=== PATIENT | male | born 1950 ===

== ENCOUNTER 2019-05-16 15:16 | Emergency (ER) | payer MEDICARE, OTHER ==
[2019-05-16 16:15] LABS: #Basophils 0.1 thou/uL (0.0-0.2); #Eosinphils 0.2 thou/uL (0.0-0.7); #Lymphocytes 1.1 thou/uL (1.20-3.40); #Monocytes 0.6 thou/uL (0.11-0.59); #Neutrophils 6.9 thou/uL (1.40-6.50); %Basophils 0.7 % (0.0-1.0); %Lymphocytes 12.7 % (21.0-51.0); %Monocytes 7.2 % (0.0-10.0); %Neutrophils 77.4 % (42.0-75.0); Mean Corpuscular HGB CONC 33.2 g/dL (32.0-36.0); Mean Corpuscular Hemoglobin 33.4 pg (27.0-31.0); Mean Platelet Volume 7.7 fL (7.4-10.4); Platelet Count 191 thou/uL (130-400); RBC Distribution Width 12.5 % (11.5-14.5); Red Blood Cell (RBC) Count 4.17 mill/uL (4.70-6.10); White Blood Cell (WBC) Count 8.9 thou/uL (4.8-10.8)
[2019-05-16 16:34] LABS: ALT (SGPT) 36 U/L (8-55); AST (SGOT) 22 U/L (5-34); Albumin 4.2 g/dL (3.4-4.8); Alkaline Phosphatase 88 U/L (40-110); Anion Gap 10 mmol/L (10-20); BUN (Urea Nitrogen) 17 mg/dL (8.4-25.7); Bilirubin, Total 0.9 mg/dL (0.2-1.2); Calc. Creatinine Clearance 0 mL/min (70-130); Calcium 9.2 mg/dL (7.8-10.44); Carbon Dioxide 27 mmol/L (23-31); Chloride 104 mmol/L (98-107); Estimated GFR-MDRD 50; Glucose 191 mg/dL (83-110); Potassium 4.4 mmol/L (3.5-5.1); Protein, Total 7.2 g/dL (5.8-8.1); Sodium 137 mmol/L (136-145)
== END 2019-05-16 18:05 | disposition home or self-care (01) ==
LOC: ERS 15:16
DX: L03.116 Cellulitis of left lower limb (principal); L60.0 Ingrowing nail; I25.10 Atherosclerotic heart disease of native coronary artery without angina pectoris; I25.2 Old myocardial infarction; I10 Essential (primary) hypertension; F41.9 Anxiety disorder, unspecified; Z79.899 Other long term (current) drug therapy; Z95.5 Presence of coronary angioplasty implant and graft; Z79.01 Long term (current) use of anticoagulants; Z79.82 Long term (current) use of aspirin
CPT/HCPCS: 36415; 80053; 85025; 99283

== ENCOUNTER 2019-05-21 20:36 | Inpatient (IN) | payer MEDICARE, OTHER ==
[2019-05-21 21:20] LABS: #Eosinphils 0.3 thou/uL (0.0-0.7); #Lymphocytes 1.6 thou/uL (1.20-3.40); #Monocytes 0.8 thou/uL (0.11-0.59); #Neutrophils 5.7 thou/uL (1.40-6.50); %Basophils 0.5 % (0.0-1.0); %Eosinophils 3.3 % (0.0-10.0); %Lymphocytes 18.8 % (21.0-51.0); %Monocytes 9.4 % (0.0-10.0); %Neutrophils 67.9 % (42.0-75.0); Hemoglobin 14.1 g/dL (14.0-18.0); Mean Corpuscular HGB CONC 33.3 g/dL (32.0-36.0); Mean Corpuscular Hemoglobin 33.8 pg (27.0-31.0); Mean Platelet Volume 7.4 fL (7.4-10.4); Platelet Count 267 thou/uL (130-400); RBC Distribution Width 12.6 % (11.5-14.5); Red Blood Cell (RBC) Count 4.16 mill/uL (4.70-6.10); White Blood Cell (WBC) Count 8.4 thou/uL (4.8-10.8)
[2019-05-21 21:37] LABS: ALT (SGPT) 45 U/L (8-55); AST (SGOT) 27 U/L (5-34); Alkaline Phosphatase 103 U/L (40-110); Anion Gap 12 mmol/L (10-20); BUN (Urea Nitrogen) 25 mg/dL (8.4-25.7); Bilirubin, Total 0.6 mg/dL (0.2-1.2); Calc. Creatinine Clearance 0 mL/min (70-130); Calcium 9.7 mg/dL (7.8-10.44); Carbon Dioxide 28 mmol/L (23-31); Chloride 102 mmol/L (98-107); Estimated GFR-MDRD 47; Globulin 3.9 g/dL (2.4-3.5); Glucose 135 mg/dL (83-110); Potassium 4.5 mmol/L (3.5-5.1); Protein, Total 7.9 g/dL (5.8-8.1); Sodium 137 mmol/L (136-145)
[2019-05-21] MEDS ORDERED: Cefepime 2 GM VIAL ONE (22:55)
[2019-05-21] MEDS ORDERED: Clindamycin/D5W 900 mg/50 ml Premix Bag ONE (23:06)
[2019-05-22] MEDS ORDERED: Ondansetron PF 4 MG/2 ML Vial IVP PRN
[2019-05-22] MEDS ORDERED: Acetaminophen 650 MG Suppository PR PRN
[2019-05-22] MEDS ORDERED: Ondansetron ODT 4 MG TAB PO PRN
[2019-05-22 00:05] VITALS: BMI 31.8
[2019-05-22 00:15] LABS: Lactic Acid 0.6 mmol/L (0.5-2.2)
[2019-05-22] MEDS ORDERED: Sodium Chloride 0.9% 1,000 ML IV SCH (00:30)
--- NOTE | 2019-05-22 02:05 | HP ---
TIME OF ASSESSMENT: 2199 CHIEF COMPLAINT: Left lower leg swelling and redness. HISTORY OF PRESENT ILLNESS: Mr. Gonzalez is a 69-year-old gentleman, who presents with worsening redness and swelling involving the left lower extremity. The patient states he has had issues with cellulitis involving the same leg in the past. He was recently seen in the emergency department on May 17, 2019 with left lower leg redness x1 day. He was discharged with recommendations to follow up with Podiatry as the initial source of infection was an ingrown toe involving the left great toe and given a prescription for clindamycin. The patient states he has continued to take it with persistent worsening in the swelling and redness involving the left lower extremity. The patient states that it has not started seeping. This has prompted him to return to the hospital. He states since being on the antibiotics, he has not noted any improvement whatsoever. He reports having chills for the last couple of days on occasion. Denies having any sweats. Occasionally feels nauseated when the pain in his leg intensifies. Otherwise, denies any nausea or vomiting. Denies any chest pain, palpitations, or shortness of breath. No dizziness or lightheadedness. All other review of systems are negative. His appetite, however, has diminished, but he continues to maintain adequate hydration and has been supplementing with shakes as well as Pedialyte. PAST MEDICAL HISTORY: 1. Coronary artery disease. 2. History of SD. 3. Hypertension. 4. Borderline diabetes. 5. Anxiety. PAST SURGICAL HISTORY: 1. Appendectomy. 2. Hernia repair. 3. Orthopedic surgery. 4. Coronary artery stents x4. FAMILY HISTORY: Noncontributory. SOCIAL HISTORY: The patient reports drinking alcohol occasionally. Denies any drug use. Reports smoking in the past, but quit 22 years ago. ALLERGIES: PENICILLIN. CURRENT MEDICATIONS: 1. Losartan. 2. Levothyroxine. 3. Amlodipine. 4. Atorvastatin. 5. Amitriptyline. 6. Eliquis. 7. Aspirin. 8. Glucosamine/chondroitin. PHYSICAL EXAMINATION: GENERAL: The patient appears well developed, well nourished, is in no acute distress. VITAL SIGNS: Temperature 98.2, pulse 67, respirations 20, O2 saturation 97% on room air, blood pressure 147/80. HEENT: Normocephalic and atraumatic. Pupils are equal, round, and reactive to light. Sclerae are without icterus. Oropharynx is clear. Dry oral mucosa. NECK: Supple. LUNGS: Clear to auscultation bilaterally without any wheezes, rales, or rhonchi. CARDIAC: Regular rate and rhythm without audible murmurs, rubs, or gallops. ABDOMEN: Soft, obese, nontender, and nondistended. Normoactive bowel sounds present. No guarding or rigidity. No renal angle tenderness. EXTREMITIES: Notable for significant swelling and erythema involving the left lower extremity. He has some blistering on the anterior lower leg with weeping. Sensation intact. Left lower leg is warm to touch. NEUROLOGIC: Alert and oriented x3. INVESTIGATIONS/LABORATORY DATA: Showed a white count of 8.4, hemoglobin 14.1, hematocrit of 42.3, platelets 267, neutrophils 67.9. Sodium 137, potassium 4.5, BUN 25, creatinine 1.48, GFR 47, glucose 135, lactic acid 0.6, calcium 9.7, total bilirubin 0.6, AST 27, ALT 45, alkaline phosphatase 103. BNP negative. Protein 7.9, albumin 4.9. IMPRESSION AND PLAN: Mr. Gonzalez is a pleasant 69-year-old gentleman, who is being admitted for management of the following. 1. Left lower extremity cellulitis. The patient initially began to have redness and swelling on May 16, 2019, seen in the ED the following day and started on clindamycin. He has continued to have worsening of the redness and swelling since then with absolutely no improvement. He has been taking the clindamycin consistently. Reports occasional chills. White blood count normal. We will add on a lactic acid. We will continue IV antibiotics. We will obtain x-rays to rule out any underlying osteomyelitis. Wound Care will be consulted. Obtain venous Doppler. 2. Hypertension. Monitor blood pressure and resume home medications once verified. 3. Dehydration. Patient clinically dehydrated with dry oral mucosa and dry skin. States he has been trying his best to maintain adequate fluid intake. We will give gentle hydration. No previous renal functions to compare to, but currently his creatinine is 1.48. 4. Coronary artery disease. Resume home medications once verified. 5. Gastrointestinal prophylaxis with famotidine. 6. Code status full. Surrogate decision maker is his , Rani Gonzalez. The case was discussed with the attending who agrees with plan of care as described above. Job ID: [id number]
[2019-05-22] MEDS: Levothyroxine 175 MCG TAB PO SCH (04:23)
[2019-05-22] MEDS ORDERED: Clindamycin/D5W 900 MG in Premix Bag 1 BAG IVPB SCH (06:00)
[2019-05-22] MEDS: Acetaminophen 325 MG TAB PO PRN ×2 (06:19→12:03)
[2019-05-22 06:33] LABS: #Eosinphils 0.2 thou/uL (0.0-0.7); #Lymphocytes 1.5 thou/uL (1.20-3.40); #Monocytes 0.7 thou/uL (0.11-0.59); #Neutrophils 5.1 thou/uL (1.40-6.50); %Basophils 0.3 % (0.0-1.0); %Eosinophils 3.1 % (0.0-10.0); %Lymphocytes 19.6 % (21.0-51.0); %Monocytes 9.6 % (0.0-10.0); %Neutrophils 67.5 % (42.0-75.0); Hemoglobin 12.9 g/dL (14.0-18.0); Mean Corpuscular HGB CONC 34.3 g/dL (32.0-36.0); Mean Corpuscular Hemoglobin 35.5 pg (27.0-31.0); Mean Platelet Volume 7.6 fL (7.4-10.4); Platelet Count 241 thou/uL (130-400); RBC Distribution Width 12.7 % (11.5-14.5); Red Blood Cell (RBC) Count 3.64 mill/uL (4.70-6.10); White Blood Cell (WBC) Count 7.5 thou/uL (4.8-10.8)
[2019-05-22 06:49] LABS: Anion Gap 13 mmol/L (10-20); BUN (Urea Nitrogen) 22 mg/dL (8.4-25.7); Calc. Creatinine Clearance 85 mL/min (70-130); Calcium 9.1 mg/dL (7.8-10.44); Carbon Dioxide 24 mmol/L (23-31); Chloride 104 mmol/L (98-107); Estimated GFR-MDRD 54; Glucose 171 mg/dL (83-110); Potassium 4.6 mmol/L (3.5-5.1); Sodium 136 mmol/L (136-145)
[2019-05-22] MEDS ORDERED: FLU VACC TS2019-20(65YR UP)/PF 180 MCG/0.5 ML SYRINGE IM ONE (09:00)
[2019-05-22] MEDS ORDERED: Amlodipine 5 MG TAB PO SCH (09:00)
[2019-05-22] MEDS ORDERED: Amitriptyline HCl 25 MG TAB PO SCH (09:00)
[2019-05-22] MEDS ORDERED: Levothyroxine 175 MCG TAB PO SCH (09:00)
[2019-05-22] MEDS ORDERED: Cefepime 2 GM in Sodium Chloride 0.9% 100 ML IVPB SCH (09:00)
[2019-05-22] MEDS ORDERED: Aspirin Chewable 81 MG TAB PO SCH (09:00)
[2019-05-22] MEDS: Atorvastatin Calcium 40 MG TAB PO SCH (09:14)
[2019-05-22] MEDS: Losartan 25 MG TAB PO SCH (09:14)
[2019-05-22] MEDS: Apixaban 5 MG TAB PO SCH ×2 (09:15→20:19)
[2019-05-22] MEDS: Famotidine/PF 20 mg/2ml Vial SLOW IVP SCH ×2 (09:16→20:19)
--- NOTE | 2019-05-22 09:30 | RAD ---
LEFT TIBIA AND FIBULA TWO VIEWS: HISTORY: Cellulitis. COMPARISON: None. FINDINGS: Mild lateral compartment joint space narrowing of the knee. Circumferential swelling of the superfici al soft tissues of the tibia and fibula. There are mild vascular calcifications. Incompletely evaluat ed plantar calcaneal spur, moderate in size. No acute fracture or malalignment. No erosions or periostitis. There are medial and lateral tibial sp ine osteophytes. IMPRESSION: Circumferential swelling can be seen with cellulitis. No definite evidence for osteomyelitis. POS: TPC
--- NOTE | 2019-05-22 09:34 | RAD ---
LEFT FOOT THREE VIEWS: HISTORY: Cellulitis. COMPARISON: None. FINDINGS: There is a small erosion of the peroneus brevis insertion 5th metatarsal tuberosity. Lisfranc interva l is maintained. Type III navicular ossicle. No acute fracture or malalignment. Extensive soft tissue swelling around the ankle. IMPRESSION: 1. Extensive soft tissue swelling without fracture or malalignment. 2. Small erosion of the 5th metatarsal proximal tuberosity, likely sequela of underlying tendinosis o f peroneus brevis and less likely osteomyelitis. 3. Likely an old fracture of the 5th proximal phalanx diaphysis. Recommend correlation with focal ten derness. POS: TPC
--- NOTE | 2019-05-22 12:22 | PDOC.HOSPP ---
- Subjective Encounter Date: 05/22/19 Encounter Time: 07:45 Subjective: no leg pain says swelling in left leg has come down a bit - Objective Vital Signs & Weight: Vital Signs (12 hours) Temp Pulse Resp BP BP BP Pulse Ox 05/22/19 11:31 98.2 F 64 20 154/87 H 96 05/22/19 09:14 69 135/82 05/22/19 09:10 96 05/22/19 07:21 98 F 69 18 135/82 96 05/22/19 05:32 98.0 F 65 20 126/69 96 05/22/19 00:29 97 Weight Weight 254 lb 9.6 oz Result Diagrams: 05/22/19 05:45 05/22/19 05:45 Hospitalist ROS - Medication Medications: Active Medications Generic Name Dose Route Start Last Admin Trade Name Freq PRN Reason Stop Dose Admin Acetaminophen 650 mg 05/22/19 00:00 05/22/19 12:03 Tylenol PO 650 mg Q4H PRN Administration Headache/Fever/Mild Pain (1-3) Apixaban 5 mg 05/22/19 09:00 05/22/19 09:15 Eliquis PO 5 mg BID CLAUDIO Administration Atorvastatin Calcium 40 mg 05/22/19 09:00 05/22/19 09:14 Lipitor PO 40 mg DAILY CLAUDIO Administration Famotidine 20 mg 05/22/19 09:00 05/22/19 09:16 Pepcid SLOW IVP 20 mg Q12HR CLAUDIO Administration Cefepime HCl 2 gm/ Sodium 100 mls @ 200 mls/hr 05/22/19 09:00 05/22/19 09:16 Chloride IVPB 100 mls Q12HR CLAUDIO Administration Clindamycin Phosphate/Dextrose 50 mls @ 100 mls/hr 05/22/19 06:00 05/22/19 04 :22 900 mg/ Device IVPB 50 mls Q8HR CLAUDIO Administration Levothyroxine Sodium 175 mcg 05/22/19 06:00 05/22/19 04:23 Synthroid PO 175 mcg 0600 CLAUDIO Administration Losartan Potassium 100 mg 05/22/19 09:00 05/22/19 09:14 Cozaar PO 100 mg DAILY CLAUDIO Administration - Exam General Appearance: NAD, awake alert Eye: PERRL, anicteric sclera ENT: no oropharyngeal lesions, moist mucosa Neck: supple, no JVD Heart: RRR, no murmur Respiratory: no wheezes, no rales Gastrointestinal: soft, non-tender, non-distended, normal bowel sounds Extremities: 1+ LE edema Extremities - other findings: left leg blistering and erythema++ Neurological: cranial nerve grossly intact, no focal deficits Psychiatric: normal affect, A&O x 3 Hosp A/P (1) Left leg cellulitis Code(s): L03.116 - CELLULITIS OF LEFT LOWER LIMB Status: Acute (2) HTN (hypertension) Code(s): I10 - ESSENTIAL (PRIMARY) HYPERTENSION Status: Chronic Qualifiers: Hypertension type: essential hypertension Qualified Code(s): I10 - Essential (primary) hypertension (3) Hypothyroidism Code(s): E03.9 - HYPOTHYROIDISM, UNSPECIFIED Status: Chronic Qualifiers: Hypothyroidism type: unspecified Qualified Code(s): E03.9 - Hypothyroidism , unspecified (4) DM type 2 (diabetes mellitus, type 2) Status: Chronic Qualifiers: 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 transplanted heart: [place] heart Associated angina: without angina Qualified Code(s): I25.10 - Atherosclerotic heart disease of [place] coronary artery without angina pectoris (6) Anxiety disorder Code(s): F41.9 - ANXIETY DISORDER, UNSPECIFIED Status: Chronic Qualifiers: Anxiety disorder type: generalized anxiety disorder Qualified Code(s): F41.1 - Generalized anxiety disorder (7) Dyslipidemia Code(s): E78.5 - HYPERLIPIDEMIA, UNSPECIFIED Status: Chronic - Plan is on clindamycin, cefepime and vancomycin has ingrown toe nail with infection podiatry and ID consultation has extensive cellulitis with blistering of leg continue home meds norvasc, cozaar, synthroid, elavil, eliquis, lipitor hemostable
[2019-05-22] MEDS: Amlodipine 5 MG TAB PO SCH (15:22)
--- NOTE | 2019-05-22 15:28 | CON ---
DATE OF CONSULTATION: 05/22/2019 REASON FOR CONSULTATION: Cellulitis , left leg. HISTORY OF PRESENT ILLNESS: A 69-year-old, history of coronary artery disease, hypertension, and diabetes mellitus, type 2 as well as previous episodes of cellulitis, left lower extremity in [place]. The patient moved here about 2 years ago in part of his nursing home package, and he noticed development of redness in the left lower extremity and was seen reportedly by student union consultant, but he did have ER visit 3 days before admission. He was given oral antimicrobial therapy with clindamycin, and due to persistence and exacerbation of inflammatory process, he came back and is admitted. Now, he is feeling better. No headaches, visual symptoms, sore throat, odynophagia, or dysphagia. No cough, sputum production, or chest pain. No abdominal pain or diarrhea. No genitourinary symptoms. No joint symptoms. No neurological symptoms. PAST MEDICAL HISTORY: Type 2 diabetes, coronary artery disease, [place], hypertension, prior episodes of cellulitis in the lower extremities, and anxiety. PAST SURGICAL HISTORY: Appendectomy, hernia repair, coronary artery stent, and had knee and wrist surgeries, probably arthroscopy of the knee. FAMILY HISTORY: Noncontributory. SOCIAL HISTORY: Quit smoking many years ago. Drinks occasionally. 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 ALLERGIES: PENICILLIN WITH HIVES WHEN HE WAS AT THE AGE OF 4. CURRENT MEDICATIONS: 1. Elavil. 2. Norvasc. 3. Eliquis. 4. Aspirin. 5. Lipitor. 6. Cefepime. 7. Clindamycin. 8. Pepcid. 9. Synthroid. 10. Vancomycin. PHYSICAL EXAMINATION: VITAL SIGNS: T-max 98.2, blood pressure 150/80, pulse 64, respirations 20, O2 saturation 96%. SKIN: With a circumferential area of erythema extending from a very sharply demarcated area right above the foot to the two-thirds up the left leg. In the lower segment anterior aspect, there is a central area of what appears to be early blistering. Most of the erythema is localized in the anterior segment. The posterior is somewhat spared. The patient has a peripheral IV access and is voiding in the toilet. LYMPHATICS: No lymphadenopathy. HEENT: Ocular movements are conjugate. Sclerae are white. Pupils are equal. Oral cavity with no [place] teeth remaining. Oral mucosa is normal. NECK: Supple. LUNGS: Symmetric, clear breath sounds. HEART: S1 and S2. Regular rate. No murmurs. ABDOMEN: Soft. Not distended or tender. No ascites. No bladder distention. MUSCULOSKELETAL: No joint inflammatory activity. EXTREMITIES: Pulses 1+ in dorsalis pedis. NEUROLOGIC: Nonfocal including cognitive function. LABORATORY DATA: WBC 8.4 and 7.5, hemoglobin 12.9, MCV 103, and platelets 241. Creatinine was 1.48, now 1.3. Liver profile, normal. Albumin 4.0. He has tibia-fibula x-ray, which was not remarkable. Blood cultures are pending. ASSESSMENT: 1. Coronary artery disease. 2. Prior cellulitis with evidence of venous insufficiency with stasis dermatitis in the past. 3. New onset of inflammatory process consistent with cellulitis/erysipelas. 4. Left leg with central blistering. DISCUSSION: The most likely scenario is beta-hemolytic streptococcal cellulitis associated with venous insufficiency. The history of allergy to penicillin is remote, and typically, those patients tolerate rechallenge with penicillin. We will switch him to Rocephin 1 g daily and then follow up once improved. Switch to Keflex for suppressive therapy. Pen-Vee K can be given here in the hospital as a challenge to allow prescription after discharge planning. Job ID: [id number]
[2019-05-22] MEDS ORDERED: Ibuprofen 200 MG TAB PO PRN (15:56)
[2019-05-22] MEDS: cefTRIAXone\\ROCEPHIN 1 GM in Sodium Chloride 0.9% 100 ML IVPB SCH (20:19)
[2019-05-22] MEDS: Amitriptyline HCl 25 MG TAB PO SCH (20:19)
[2019-05-22] MEDS: Aspirin Chewable 81 MG TAB PO SCH (20:19)
[2019-05-22] MEDS ORDERED: Vancomycin HCl 1.75 GM in Sodium Chloride 0.9% 500 ML IVPB SCH (23:59)
[2019-05-23] MEDS: Levothyroxine 175 MCG TAB PO SCH (03:26)
[2019-05-23] MEDS: Acetaminophen 325 MG TAB PO PRN (03:26)
[2019-05-23] MEDS: HYDROcodone/Acetaminophen 7.5/325 mg Tablet PO PRN ×3 (05:15→21:26)
[2019-05-23] MEDS: Losartan 25 MG TAB PO SCH (09:21)
[2019-05-23] MEDS: Famotidine/PF 20 mg/2ml Vial SLOW IVP SCH ×2 (09:21→20:29)
[2019-05-23] MEDS: Atorvastatin Calcium 40 MG TAB PO SCH (09:22)
[2019-05-23] MEDS: Apixaban 5 MG TAB PO SCH ×2 (09:22→20:29)
[2019-05-23] MEDS ORDERED: traMADol HCl 50 MG TAB PO PRN (09:51)
[2019-05-23] MEDS: Mupirocin 2% Ointment 22 GM Tube TOP SCH (10:57)
--- NOTE | 2019-05-23 12:39 | PDOC.HOSPP ---
- Subjective Encounter Date: 05/23/19 Encounter Time: 09:30 Subjective: Pain is better in leg, ambulating in room. Gets nauseated with morphine. - Objective Vital Signs & Weight: Vital Signs (12 hours) Temp Pulse Resp BP Pulse Ox 05/23/19 09:15 95 05/23/19 07:30 98.0 F 67 18 113/71 95 Weight Admit Weight 254 lb 9.6 oz Weight 254 lb 9.6 oz I&O: 05/22/19 05/23/19 05/24/19 06:59 06:59 06:59 Intake Total 1600 Balance 1600 Result Diagrams: 05/22/19 05:45 05/22/19 05:45 Hospitalist ROS - Medication Medications: Active Medications Generic Name Dose Route Start Last Admin Trade Name Freq PRN Reason Stop Dose Admin Acetaminophen 650 mg 05/22/19 00:00 05/23/19 03:26 Tylenol PO 650 mg Q4H PRN Administration Headache/Fever/Mild Pain (1-3) Hydrocodone Bitart/Acetaminophen 1 tab 05/22/19 18:21 05/23/19 09:20 [place] 7.5/325 PO 1 tab Q4H PRN Administration Pain Amitriptyline HCl 50 mg 05/22/19 21:00 05/22/19 20:19 Elavil PO 50 mg HS CLAUDIO Administration Amlodipine Besylate 5 mg 05/22/19 15:00 05/22/19 15:22 Norvasc PO 5 mg 1500 CLAUDIO Administration Apixaban 5 mg 05/22/19 09:00 05/23/19 09:22 Eliquis PO 5 mg BID CLAUDIO Administration Aspirin 81 mg 05/22/19 21:00 05/22/19 20:19 Aspirin Chewable PO 81 mg HS CLAUDIO Administration Atorvastatin Calcium 40 mg 05/22/19 09:00 05/23/19 09:22 Lipitor PO 40 mg DAILY CLAUDIO Administration Famotidine 20 mg 05/22/19 09:00 05/23/19 09:21 Pepcid SLOW IVP 20 mg Q12HR CLAUDIO Administration Ceftriaxone Sodium 1 gm/ 100 mls @ 200 mls/hr 05/22/19 21:00 05/22/19 20:19 Sodium Chloride IVPB 100 mls Q24HR CLAUDIO Administration Ibuprofen 400 mg 05/22/19 15:56 05/22/19 16:23 Motrin PO 400 mg Q8H PRN Administration Moderate Pain (4-6) Levothyroxine Sodium 175 mcg 05/22/19 06:00 05/23/19 03:26 Synthroid PO 175 mcg 0600 CLAUDIO Administration Losartan Potassium 100 mg 05/22/19 09:00 05/23/19 09:21 Cozaar PO 100 mg DAILY CLAUDIO Administration Mupirocin 0 gm 05/23/19 09:00 05/23/19 10:57 Bactroban 2% Ointment TOP 1 applic DAILY CLAUDIO Administration - Exam General Appearance: NAD, awake alert Eye: PERRL, anicteric sclera ENT: no oropharyngeal lesions, moist mucosa Neck: supple, no JVD Heart: RRR, no murmur Respiratory: no wheezes, no rales Gastrointestinal: soft, non-distended, normal bowel sounds Extremities - other findings: L leg erythema and edema is receding/ in dressing Neurological: cranial nerve grossly intact, no focal deficits Psychiatric: normal affect, A&O x 3 Hosp A/P (1) Left leg cellulitis Code(s): L03.116 - CELLULITIS OF LEFT LOWER LIMB Status: Acute (2) HTN (hypertension) Code(s): I10 - ESSENTIAL (PRIMARY) HYPERTENSION Status: Chronic Qualifiers: Hypertension type: essential hypertension Qualified Code(s): I10 - Essential (primary) hypertension (3) Hypothyroidism Code(s): E03.9 - HYPOTHYROIDISM, UNSPECIFIED Status: Chronic Qualifiers: Hypothyroidism type: unspecified Qualified Code(s): E03.9 - Hypothyroidism , unspecified (4) DM type 2 (diabetes mellitus, type 2) Status: Chronic Qualifiers: Diabetes mellitus skilled nursing insulin use: without skilled nursing use (5) CAD (coronary artery disease) Code(s): I25.10 - ATHSCL HEART DISEASE OF [place] CORONARY ARTERY W/O ANG PCTRS Status: Chronic Qualifiers: Coronary Disease-Associated Artery/Lesion type: [place] artery [place] vs. transplanted heart: [place] heart Associated angina: without angina Qualified Code(s): I25.10 - Atherosclerotic heart disease of [place] coronary artery without angina pectoris (6) Anxiety disorder Code(s): F41.9 - ANXIETY DISORDER, UNSPECIFIED Status: Chronic Qualifiers: Anxiety disorder type: generalized anxiety disorder Qualified Code(s): F41.1 - Generalized anxiety disorder (7) Dyslipidemia Code(s): E78.5 - HYPERLIPIDEMIA, UNSPECIFIED Status: Chronic - Plan is on ceftriaxone has ingrown toe nail with infection, s/p removal of nail by Dorothy Carrasco has extensive cellulitis with blistering of leg continue home meds norvasc, cozaar, synthroid, elavil, eliquis, lipitor hemostable
--- NOTE | 2019-05-23 13:25 | PRG ---
DATE OF SERVICE: 05/23/2019 SUBJECTIVE: Dr. De La Cruz removed an ingrown toenail from the left foot. The leg itself is not as swollen and still moderately painful. No respiratory or abdominal symptoms. OBJECTIVE: VITAL SIGNS: Normal. He has been afebrile. EXTREMITIES: The left leg cellulitis is improving with less erythema. There is a central anterior area of blistering with sort of yellow serous fluid inside. LABORATORY DATA: White cell count 7.5, hemoglobin 12.9, platelets 241. Creatinine 1.3, which has improved. No microbiology information. ASSESSMENT AND DISCUSSION: Coronary artery disease, cellulitis in the past with now recurrence likely beta-hemolytic Streptococcal cellulitis, blistering associated with it. Continue Rocephin. Maybe tomorrow or Monday go home on Keflex and then Pen-Vee K suppressive therapy for 1 year. Job ID: [id number]
[2019-05-23] MEDS: Amlodipine 5 MG TAB PO SCH (15:01)
[2019-05-23] MEDS: cefTRIAXone\\ROCEPHIN 1 GM in Sodium Chloride 0.9% 100 ML IVPB SCH (20:29)
[2019-05-23] MEDS: Amitriptyline HCl 25 MG TAB PO SCH (20:29)
[2019-05-23] MEDS: Aspirin Chewable 81 MG TAB PO SCH (20:29)
[2019-05-23] MEDS: Penicillin V Potassium 250 MG TAB PO SCH (20:29)
[2019-05-24] MEDS: Levothyroxine 175 MCG TAB PO SCH (06:02)
[2019-05-24] MEDS: Apixaban 5 MG TAB PO SCH ×2 (08:42→20:49)
[2019-05-24] MEDS: Losartan 25 MG TAB PO SCH (08:42)
[2019-05-24] MEDS: Penicillin V Potassium 250 MG TAB PO SCH ×2 (08:42→20:49)
[2019-05-24] MEDS: Atorvastatin Calcium 40 MG TAB PO SCH (08:42)
[2019-05-24] MEDS: Acetaminophen 325 MG TAB PO PRN ×2 (08:43→17:03)
[2019-05-24] MEDS: Famotidine/PF 20 mg/2ml Vial SLOW IVP SCH (08:44)
[2019-05-24] MEDS: Mupirocin 2% Ointment 22 GM Tube TOP SCH (08:44)
--- NOTE | 2019-05-24 15:11 | PDOC.HOSPP ---
- Subjective Encounter Date: 05/24/19 Encounter Time: 10:45 Subjective: feels better, no reaction to oral pen vk leg pain is better, is ambulating in room - Objective Vital Signs & Weight: Vital Signs (12 hours) Temp Pulse Resp BP Pulse Ox 05/24/19 11:22 97.9 F 74 20 113/72 98 05/24/19 07:48 98.3 F 65 18 137/82 94 L Weight Admit Weight 254 lb 9.6 oz Weight 254 lb 9.6 oz I&O: 05/23/19 05/24/19 05/25/19 06:59 06:59 06:59 Intake Total 1600 Balance 1600 Result Diagrams: 05/22/19 05:45 05/22/19 05:45 Hospitalist ROS - Medication Medications: Active Medications Generic Name Dose Route Start Last Admin Trade Name Freq PRN Reason Stop Dose Admin Acetaminophen 650 mg 05/22/19 00:00 05/24/19 08:43 Tylenol PO 650 mg Q4H PRN Administration Headache/Fever/Mild Pain (1-3) Hydrocodone Bitart/Acetaminophen 1 tab 05/22/19 18:21 05/23/19 21:26 [place] 7.5/325 PO 1 tab Q4H PRN Administration Pain Amitriptyline HCl 50 mg 05/22/19 21:00 05/23/19 20:29 Elavil PO 50 mg HS CLAUDIO Administration Amlodipine Besylate 5 mg 05/22/19 15:00 05/23/19 15:01 Norvasc PO 5 mg 1500 CLAUDIO Administration Apixaban 5 mg 05/22/19 09:00 05/24/19 08:42 Eliquis PO 5 mg BID CLAUDIO Administration Aspirin 81 mg 05/22/19 21:00 05/23/19 20:29 Aspirin Chewable PO 81 mg HS CLAUDIO Administration Atorvastatin Calcium 40 mg 05/22/19 09:00 05/24/19 08:42 Lipitor PO 40 mg DAILY CLAUDIO Administration Famotidine 20 mg 05/22/19 09:00 05/24/19 08:44 Pepcid SLOW IVP 20 mg Q12HR CLAUDIO Administration Ibuprofen 400 mg 05/22/19 15:56 05/22/19 16:23 Motrin PO 400 mg Q8H PRN Administration Moderate Pain (4-6) Levothyroxine Sodium 175 mcg 05/22/19 06:00 05/24/19 06:02 Synthroid PO 175 mcg 0600 CLAUDIO Administration Losartan Potassium 100 mg 05/22/19 09:00 05/24/19 08:42 Cozaar PO 100 mg DAILY CLAUDIO Administration Mupirocin 0 gm 05/23/19 09:00 05/24/19 08:44 Bactroban 2% Ointment TOP 1 applic DAILY CLAUDIO Administration Penicillin V Potassium 250 mg 05/23/19 21:00 05/24/19 08:42 Penicillin V Potassium PO 250 mg BID CLAUDIO Administration - Exam General Appearance: NAD, awake alert Eye: PERRL, anicteric sclera ENT: no oropharyngeal lesions, moist mucosa Neck: supple, no JVD Heart: RRR, no murmur Respiratory: no wheezes, no rales Gastrointestinal: soft, non-tender, non-distended, normal bowel sounds Extremities - other findings: left leg erythema and edema is receding Neurological: cranial nerve grossly intact, no focal deficits Psychiatric: normal affect, A&O x 3 Hosp A/P (1) Left leg cellulitis Code(s): L03.116 - CELLULITIS OF LEFT LOWER LIMB Status: Acute (2) HTN (hypertension) Code(s): I10 - ESSENTIAL (PRIMARY) HYPERTENSION Status: Chronic Qualifiers: Hypertension type: essential hypertension Qualified Code(s): I10 - Essential (primary) hypertension (3) Hypothyroidism Code(s): E03.9 - HYPOTHYROIDISM, UNSPECIFIED Status: Chronic Qualifiers: Hypothyroidism type: unspecified Qualified Code(s): E03.9 - Hypothyroidism , unspecified (4) DM type 2 (diabetes mellitus, type 2) Status: Chronic Qualifiers: Diabetes mellitus correction insulin use: without correction use (5) CAD (coronary artery disease) Code(s): I25.10 - ATHSCL HEART DISEASE OF [place] CORONARY ARTERY W/O ANG PCTRS Status: Chronic Qualifiers: Coronary Disease-Associated Artery/Lesion type: [place] artery [place] vs. transplanted heart: [place] heart Associated angina: without angina Qualified Code(s): I25.10 - Atherosclerotic heart disease of [place] coronary artery without angina pectoris (6) Anxiety disorder Code(s): F41.9 - ANXIETY DISORDER, UNSPECIFIED Status: Chronic Qualifiers: Anxiety disorder type: generalized anxiety disorder Qualified Code(s): F41.1 - Generalized anxiety disorder (7) Dyslipidemia Code(s): E78.5 - HYPERLIPIDEMIA, UNSPECIFIED Status: Chronic - Plan is on ceftriaxone IM, lost his IV access today, difficult to get another one per staff. has ingrown toe nail with infection, s/p removal of nail by Dorothy Carrasco has extensive cellulitis with blistering of leg continue home meds norvasc, cozaar, synthroid, elavil, eliquis, lipitor hemostable DC plan in am on KEflex x 10 days then Pen VK 500mg bid x 1 year per .
[2019-05-24] MEDS: Amlodipine 5 MG TAB PO SCH (15:44)
[2019-05-24] MEDS: Amitriptyline HCl 25 MG TAB PO SCH (20:49)
[2019-05-24] MEDS: Famotidine 20 MG TAB PO SCH (20:49)
[2019-05-24] MEDS: Aspirin Chewable 81 MG TAB PO SCH (20:49)
[2019-05-24] MEDS: HYDROcodone/Acetaminophen 7.5/325 mg Tablet PO PRN (20:50)
[2019-05-25] MEDS: Levothyroxine 175 MCG TAB PO SCH (06:00)
[2019-05-25] MEDS: HYDROcodone/Acetaminophen 7.5/325 mg Tablet PO PRN ×2 (06:02→12:56)
[2019-05-25 06:07] LABS: #Basophils 0.1 thou/uL (0.0-0.2); #Eosinphils 0.4 thou/uL (0.0-0.7); #Lymphocytes 1.7 thou/uL (1.20-3.40); #Monocytes 0.6 thou/uL (0.11-0.59); #Neutrophils 4.6 thou/uL (1.40-6.50); %Basophils 0.7 % (0.0-1.0); %Eosinophils 4.9 % (0.0-10.0); %Lymphocytes 22.5 % (21.0-51.0); %Monocytes 8.8 % (0.0-10.0); %Neutrophils 63.1 % (42.0-75.0); Mean Corpuscular HGB CONC 33.8 g/dL (32.0-36.0); Mean Corpuscular Hemoglobin 34.5 pg (27.0-31.0); Mean Platelet Volume 6.8 fL (7.4-10.4); Platelet Count 290 thou/uL (130-400); RBC Distribution Width 12.6 % (11.5-14.5); Red Blood Cell (RBC) Count 3.77 mill/uL (4.70-6.10); White Blood Cell (WBC) Count 7.3 thou/uL (4.8-10.8)
[2019-05-25 06:25] LABS: ALT (SGPT) 39 U/L (8-55); AST (SGOT) 24 U/L (5-34); Albumin 3.6 g/dL (3.4-4.8); Alkaline Phosphatase 88 U/L (40-110); Anion Gap 13 mmol/L (10-20); BUN (Urea Nitrogen) 23 mg/dL (8.4-25.7); Bilirubin, Total 0.6 mg/dL (0.2-1.2); Calc. Creatinine Clearance 76 mL/min (70-130); Calcium 9.2 mg/dL (7.8-10.44); Carbon Dioxide 26 mmol/L (23-31); Chloride 102 mmol/L (98-107); Estimated GFR-MDRD 48; Globulin 3.6 g/dL (2.4-3.5); Glucose 121 mg/dL (83-110); Potassium 4.9 mmol/L (3.5-5.1); Protein, Total 7.2 g/dL (5.8-8.1); Sodium 136 mmol/L (136-145)
[2019-05-25] MEDS: Atorvastatin Calcium 40 MG TAB PO SCH (07:57)
[2019-05-25] MEDS: Famotidine 20 MG TAB PO SCH (07:57)
[2019-05-25] MEDS: Losartan 25 MG TAB PO SCH (07:57)
[2019-05-25] MEDS: Penicillin V Potassium 250 MG TAB PO SCH (07:57)
[2019-05-25] MEDS: Apixaban 5 MG TAB PO SCH (07:58)
[2019-05-25] MEDS: Mupirocin 2% Ointment 22 GM Tube TOP SCH (07:58)
[2019-05-25] MEDS ORDERED: cefTRIAXone\\ROCEPHIN 1 GM VIAL IM SCH (09:00)
[2019-05-25] MEDS: Amlodipine 5 MG TAB PO SCH (14:55)
[2019-05-25 15:54] VITALS: BP 123/73; TEMP 98
--- NOTE | 2019-05-27 08:06 | PQF ---
FELIPA SALINAS VINAYA KUMAR MD [id number] CLINICAL DOCUMENTATION CLARIFICATION FORM: POST DISCHARGE Addendum to original discharge summary date: ____ Late entry note date: __ DATE:05/27/2019 ATTN: LAURA MARTINEZ MD Please exercise your independent, professional judgment in responding to the clarification form. Clinical indicators are provided on the bottom of this form for your review Please check appropriate box(s): [ ] Left leg cellulitis is due to Diabetes [ ] Left leg cellulitis is not due to Diabetes [ ] Other diagnosis [ x ] Unable to determine For continuity of documentation, please document condition throughout progress notes and discharge summary. Thank You. CLINICAL INDICATORS - SIGNS / SYMPTOMS / LABS Left lower leg swelling and redness-Documented in H&P on 05/21 by Evelyne Loja PA-C PMH-Borderline diabetes-Documented in H&P on 05/21 by Evelyne Loja PA-C [id number] in H&P on 05/21 by Evelyne Loja PA-C Left lower extremity cellulitis--Documented in H&P on 05/21 by Evelyne Loja PA-C DM type 2 chronic-Documented in Hospitalist PN 05/22 by Laura Martinez RISKS: Left lower extremity cellulitis--Documented in H&P on 05/21 by Evelyne Loja PA-C DM type 2 chronic-Documented in Hospitalist PN 05/22 by Laura Martinez TREATMENT: Is on Clindamycin, Cefepime and vancomycin--Documented in Hospitalist PN 05/22 by Laura Martinez 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 All Rights Reserved [email or web address] [email or web address] [phone] [email or web address]
--- NOTE | 2019-05-27 11:49 | DIS ---
DATE OF ADMISSION: 05/21/2019 DATE OF DISCHARGE: 05/25/2019 DISCHARGE DIAGNOSES: 1. Left leg cellulitis. 2. Hypertension. 3. Hypothyroidism. 4. Diabetes, type 2. 5. Coronary artery disease. 6. Anxiety disorder. 7. Dyslipidemia. HOSPITAL COURSE: Mr. Gonzalez is a 69-year-old gentleman, who was admitted on 05/21/2019, on account of left leg swelling and redness. The patient is stated to have had cellulitis in the same leg and the pus. He had recently been in the emergency room on 05/17, with complaints of right leg swelling. He was given antibiotics and recommendation to follow up with Podiatry. The patient, however, stated that his swelling got worse, so he presented to emergency room. Upon presentation to the emergency room, he was diagnosed with left lower extremity swelling as well as sepsis, was started on appropriate antibiotics and Infectious Disease was consulted. They saw patient and felt that patient will require aggressive therapy. They felt that patient's symptoms were consistent with erysipelas and recommended for long-term antibiotics as well as suppressive therapy. The patient was started on antibiotics in the hospital and improved. At the time of discharge, it was documented that he will be discharged home on Keflex for 10 days and then penicillin VK 500 mg b.i.d. for 1 year. At the time of discharge, the patient was stable. PHYSICAL EXAMINATION: VITAL SIGNS: Temperature 98, blood pressure 123/73, pulse is 70, respirations 18, and oxygen saturation 95% on room air. GENERAL: Alert gentleman, in no acute distress. HEENT: . Pupils are equal and reactive to light and accommodation. Extraocular muscles are intact. NECK: Supple. No JVD. No thyromegaly. No bruits. CARDIOVASCULAR: First and second heart sounds were heard. No murmurs, rubs, or gallops. RESPIRATORY: Good air entry bilaterally. No crackles. No rales. No wheezes. ABDOMEN: Bowel sounds are present. Nondistended. Nontender. EXTREMITIES: No cyanosis. No clubbing. No edema. MEDICATIONS: Kindly see medication reconciliation list. FOLLOWUP: The patient is to follow up with Infectious Disease in the next 1 month. ACTIVITIES: As tolerated. DIET: Cardiac diet. Plan was discussed with patient. He agrees with the plan and expressed understanding. TIME SPENT: Time spent on discharge was 30 minutes. Job ID: [id number]
--- NOTE | 2019-06-03 08:42 | PQF ---
FELIPA SALINAS SAVAN, MD [id number] CLINICAL DOCUMENTATION CLARIFICATION FORM: POST DISCHARGE Addendum to original discharge summary date: ____ Late entry note date: __ DATE:06/03/2019 ATTN:TAMMY CHOE MD Please exercise your independent, professional judgment in responding to the clarification form. Clinical indicators are provided on the bottom of this form for your review Please check appropriate box(s) to clarify if the following diagnosis has been ruled in or ruled out: Sepsis [ ] Ruled in diagnosis [ ] Continue to treat [ ] Resolved [ ] Ruled out diagnosis [ ] Cannot rule out diagnosis [ ] Other diagnosis [ ] Unable to determine In addition, please specify: Present on Admission (POA): [ ] Yes [ ] No [ ] Unable to determine For continuity of documentation, please document condition throughout progress notes and discharge summary. Thank You. CLINICAL INDICATORS - SIGNS / SYMPTOMS / LABS Left leg cellulitis-Documented in Discharge summary on 05/25 by Roger Ochoa MD Upon presentation to the emergency room he was diagnosed with left lower extremity swelling as well as sepsis -Documented in Discharge summary on 05/25 by Roger Ochoa MD They felt that patient's symptoms were consistent with erysipelas and recommended for senior living antibiotics as well as suppressive therapy-Documented in Discharge summary on 05/25 by Roger Ochoa MD RISK FACTORS Left leg cellulitis-Documented in Discharge summary on 05/25 by Roger Ochoa MD TREATMENTS Started on appropriate antibiotics and infectious disease was consulted.They saw patient and felt that patient will require aggressive therapy-Documented in Discharge summary on 05/25 by Roger Ochoa MD [employer] (This form is maintained as a part of the permanent medical record) 2014 [employer] All Rights Reserved [email or web address]
== END 2019-05-25 19:51 | disposition home or self-care (01) | DRG 872 ==
LOC: ERS 20:36 → T4-A 23:40
PROVIDERS: ADMIT Hospitalist; ATTEND Hospitalist
DX: A41.9 Sepsis, unspecified organism (principal); L03.116 Cellulitis of left lower limb; I25.10 Atherosclerotic heart disease of native coronary artery without angina pectoris; F41.9 Anxiety disorder, unspecified; E86.0 Dehydration; I10 Essential (primary) hypertension; E03.9 Hypothyroidism, unspecified; E11.9 Type 2 diabetes mellitus without complications; E78.5 Hyperlipidemia, unspecified; L60.0 Ingrowing nail; B95.4 Other streptococcus as the cause of diseases classified elsewhere; I87.2 Venous insufficiency (chronic) (peripheral); Z88.0 Allergy status to penicillin; Z87.891 Personal history of nicotine dependence; Z95.5 Presence of coronary angioplasty implant and graft; I25.2 Old myocardial infarction; Z98.890 Other specified postprocedural states; Z85.038 Personal history of other malignant neoplasm of large intestine; Z91.048 Other nonmedicinal substance allergy status
CPT/HCPCS: 36415; 80048; 80053; 83605; 83880; 85025; 90471; 90662; 96365; 96375; G0008; J0692; J0696; J3370; J3490; J7050; S0028

== ENCOUNTER 2019-06-14 11:57 | Observation (INO) | payer MEDICARE, OTHER ==
[2019-06-14 12:56] LABS: #Basophils 0.1 thou/uL (0.0-0.2); #Eosinphils 0.3 thou/uL (0.0-0.7); #Lymphocytes 1.7 thou/uL (1.20-3.40); #Monocytes 0.4 thou/uL (0.11-0.59); #Neutrophils 3.7 thou/uL (1.40-6.50); %Eosinophils 5.3 % (0.0-10.0); %Lymphocytes 26.9 % (21.0-51.0); %Monocytes 6.9 % (0.0-10.0); %Neutrophils 59.9 % (42.0-75.0); Hemoglobin 14.5 g/dL (14.0-18.0); Mean Corpuscular HGB CONC 33.5 g/dL (32.0-36.0); Mean Corpuscular Hemoglobin 34.5 pg (27.0-31.0); Mean Platelet Volume 7.8 fL (7.4-10.4); Platelet Count 230 thou/uL (130-400); RBC Distribution Width 12.9 % (11.5-14.5); Red Blood Cell (RBC) Count 4.22 mill/uL (4.70-6.10); White Blood Cell (WBC) Count 6.1 thou/uL (4.8-10.8)
[2019-06-14 13:18] LABS: ALT (SGPT) 40 U/L (8-55); AST (SGOT) 25 U/L (5-34); Albumin 4.2 g/dL (3.4-4.8); Alkaline Phosphatase 96 U/L (40-110); Anion Gap 11 mmol/L (10-20); BUN (Urea Nitrogen) 13 mg/dL (8.4-25.7); Bilirubin, Total 0.6 mg/dL (0.2-1.2); Calc. Creatinine Clearance 0 mL/min (70-130); Calcium 9.5 mg/dL (7.8-10.44); Carbon Dioxide 28 mmol/L (23-31); Chloride 103 mmol/L (98-107); Estimated GFR-MDRD 53; Globulin 3.7 g/dL (2.4-3.5); Glucose 124 mg/dL (83-110); Potassium 4.7 mmol/L (3.5-5.1); Protein, Total 7.9 g/dL (5.8-8.1); Sodium 137 mmol/L (136-145)
[2019-06-14] MEDS ORDERED: Piperacillin/Tazobactam 4.5 GM VIAL ONE (16:16)
[2019-06-14] MEDS ORDERED: Vancomycin 1.5 GRAM/300 ML BAG 1.5 GM in Premix Bag 1 BAG IVPB SCH (16:30)
--- NOTE | 2019-06-14 16:55 | RAD ---
Frontal and lateral imaging of the left tibia/fibula: 06/14/2019 COMPARISON: 05/22/2019 HISTORY: Left leg infection, edema and pain FINDINGS: There is diffuse soft tissue swelling with edematous change within the subcutaneous fat wit hin the region of the calf. No associated subcutaneous gas. No radiopaque foreign body. No displaced fracture or evidence of dislocation. There is enthesophyte formation at the origin of the p lantar aponeurosis and the insertion of the Achilles tendon. IMPRESSION: Diffuse soft tissue swelling in the region of the left calf with no associated fracture/d islocation, subcutaneous gas, or radiopaque foreign body.
[2019-06-14] MEDS ORDERED: Acetaminophen 325 MG TAB PO PRN (19:03)
[2019-06-14] MEDS ORDERED: Senokot S 8.6-50 MG TAB PO PRN (19:03)
[2019-06-14] MEDS ORDERED: Sodium Chloride 0.9% 1,000 ML IV SCH (19:15)
--- NOTE | 2019-06-14 19:46 | PDOC.HHP ---
Hospitalist HPI - History of Present Illness Worsening Left Leg cellulitis History of Present Illness: 69M presents to the ED for evaluation of worsening left leg cellulitis. Patient reports cellulitis started 4 weeks ago, he was started on ABX as an outpatient, cellulitis worsened and he came to the hospital and was admitted for IV antibiotics. He was seen by Dr. Ortiz and a blast hole driller came to see and removed left toenail which was ingrown. He was sent home 2 weeks ago with Keflex and daily PCN which Dr. Ortiz instructed he should be on for a year. Patient reports he finished the Keflex on Monday Patient states wound has never improved and he noticed a different odor in the wound 2-3 days ago. Denies fever, chills. Denies wound care treatment as an outpatient, reports his does wound care for him. No elevated WBC on lab work today. Patient was given Vancomycin and Zosyn and will be admitted for IV ABX. Hospitalist ROS - Review of Systems Constitutional: denies: fever, chills, weakness Eyes: denies: pain, vision change, conjunctivae inflammation, eyelid inflammation, redness, other ENT: denies: ear pain, ear discharge, nose pain, nose discharge, nose congestion , mouth pain, mouth swelling, throat pain, throat swelling, other Respiratory: denies: cough, dry, shortness of breath, hemoptysis, SOB with excertion, pleuritic pain, sputum, wheezing, other Cardiovascular: denies: chest pain, palpitations, orthopnea, paroxysmal noc. dyspnea, edema, light headedness, other Gastrointestinal: denies: nausea, vomiting, abdominal pain, diarrhea, constipation, melena, hematochezia, other Genitourinary: denies: dysuria, frequency, incontinence, hematuria, retention, other Musculoskeletal: reports: leg pain (Intermittent left lower leg pain) Skin: reports: lesions (Anterior left lower leg with warmth, erythema and bullous lesions) Hospitalist History - Past Medical History Cardiac: reports: CAD, HTN, Hyperlipidemia Pulmonary: reports: hypertension Gastrointestinal: reports: no pertinent history, Other (colon ca in past) Heme/Onc: reports: Cancer Hepatobiliary: reports: no pertinent history Psych: reports: no pertinent history, Anxiety Rheumatologic: reports: Other (Rheumatic fever as a child) Endocrine: reports: Other (Graves disease) - Past Surgical History Past Surgical History: reports: Appendectomy, Hernia Repair - Social History Smoking Status: Former smoker Alcohol: reports: Occassional Living Situation: With Family - Exam Eye: PERRL ENT: normocephalic atraumatic, moist mucosa Neck: supple, no JVD Heart: RRR, no murmur, normal peripheral pulses Respiratory: CTAB, normal chest expansion Gastrointestinal: soft, non-tender, normal bowel sounds Extremities: no cyanosis, no edema Skin - other findings: anterior left leg with large area of erythema and warmth , bullous lesions Neurological: cranial nerve grossly intact, no focal deficits Musculoskeletal: normal tone, normal strength Psychiatric: normal affect, A&O x 3 Hospitalist Results - Labs Result Diagrams: 06/14/19 12:36 06/14/19 12:36 Lab results: WBC 6.1 thou/uL (4.8-10.8) 06/14/19 12:36 Hgb 14.5 g/dL (14.0-18.0) 06/14/19 12:36 Hct 43.4 % (42.0-52.0) 06/14/19 12:36 MCV 103.0 fL (78.0-98.0) H 06/14/19 12:36 Plt Count 230 thou/uL (130-400) 06/14/19 12:36 Neutrophils % 59.9 % (42.0-75.0) 06/14/19 12:36 ESR Westergren 13 mm/hr (Less than 20) 06/14/19 16:21 Sodium 137 mmol/L (136-145) 06/14/19 12:36 Potassium 4.7 mmol/L (3.5-5.1) 06/14/19 12:36 Chloride 103 mmol/L (98-107) 06/14/19 12:36 Carbon Dioxide 28 mmol/L (23-31) 06/14/19 12:36 BUN 13 mg/dL (8.4-25.7) 06/14/19 12:36 Creatinine 1.32 mg/dL (0.7-1.3) H 06/14/19 12:36 Glucose 124 mg/dL (83-110) H 06/14/19 12:36 Calcium 9.5 mg/dL (7.8-10.44) 06/14/19 12:36 Total Bilirubin 0.6 mg/dL (0.2-1.2) 06/14/19 12:36 AST 25 U/L (5-34) 06/14/19 12:36 ALT 40 U/L (8-55) 06/14/19 12:36 Alkaline Phosphatase 96 U/L (40-110) 06/14/19 12:36 C-Reactive Protein Less than 0.50 mg/dL (= or < 0.5) 06/14/19 16:21 Serum Total Protein 7.9 g/dL (5.8-8.1) 06/14/19 12:36 Albumin 4.2 g/dL (3.4-4.8) 06/14/19 12:36 Hospitalist H&P A/P - Problem (1) Left leg cellulitis Code(s): L03.116 - CELLULITIS OF LEFT LOWER LIMB Status: Acute (2) Anxiety disorder Code(s): F41.9 - ANXIETY DISORDER, UNSPECIFIED Status: Chronic Qualifiers: Anxiety disorder type: generalized anxiety disorder Qualified Code(s): F41.1 - Generalized anxiety disorder (3) CAD (coronary artery disease) Code(s): I25.10 - ATHSCL HEART DISEASE OF [place] CORONARY ARTERY W/O ANG PCTRS Status: Chronic Qualifiers: Coronary Disease-Associated Artery/Lesion type: [place] artery [place] vs. transplanted heart: [place] heart Associated angina: without angina Qualified Code(s): I25.10 - Atherosclerotic heart disease of [place] coronary artery without angina pectoris (4) Dyslipidemia Code(s): E78.5 - HYPERLIPIDEMIA, UNSPECIFIED Status: Chronic (5) HTN (hypertension) Code(s): I10 - ESSENTIAL (PRIMARY) HYPERTENSION Status: Chronic Qualifiers: Hypertension type: essential hypertension Qualified Code(s): I10 - Essential (primary) hypertension (6) Hypothyroidism Code(s): E03.9 - HYPOTHYROIDISM, UNSPECIFIED Status: Chronic Qualifiers: Hypothyroidism type: unspecified Qualified Code(s): E03.9 - Hypothyroidism , unspecified - Plan Plan: Will continue Vancomycin (dosed per Pharmacy) and Zosyn Wound culture, wound care consult ordered Will repeat labs in AM Dr. Ortiz has been consulted Patient on Eliquis which we will restart, add pepcid for GI prophylaxis Will restart home meds when reconciled Will hold oral PCN while on IV ABX Case discussed with Dr. Gutierrez who agrees with plan Patient is a full code
[2019-06-14 21:04] VITALS: BMI 31.5
[2019-06-14] MEDS: Famotidine 20 MG TAB PO SCH (21:42)
[2019-06-15] MEDS: Piperacillin/Tazobactam 3.375 GM in Sodium Chloride 0.9% 100 ML IVPB SCH ×3 (00:14→11:51)
[2019-06-15] MEDS ORDERED: Vancomycin 1.5 GRAM/300 ML BAG 1.5 GM in Premix Bag 1 BAG IVPB SCH (04:00)
[2019-06-15 04:50] LABS: #Basophils 0.1 thou/uL (0.0-0.2); #Eosinphils 0.3 thou/uL (0.0-0.7); #Lymphocytes 1.7 thou/uL (1.20-3.40); #Monocytes 0.5 thou/uL (0.11-0.59); #Neutrophils 3.7 thou/uL (1.40-6.50); %Basophils 1.1 % (0.0-1.0); %Eosinophils 5.3 % (0.0-10.0); %Lymphocytes 26.2 % (21.0-51.0); %Monocytes 8.2 % (0.0-10.0); %Neutrophils 59.3 % (42.0-75.0); Hemoglobin 13.4 g/dL (14.0-18.0); Mean Corpuscular HGB CONC 34.1 g/dL (32.0-36.0); Mean Corpuscular Hemoglobin 34.8 pg (27.0-31.0); Mean Platelet Volume 7.7 fL (7.4-10.4); Platelet Count 187 thou/uL (130-400); RBC Distribution Width 12.9 % (11.5-14.5); Red Blood Cell (RBC) Count 3.85 mill/uL (4.70-6.10); White Blood Cell (WBC) Count 6.3 thou/uL (4.8-10.8)
[2019-06-15 05:13] LABS: ALT (SGPT) 33 U/L (8-55); AST (SGOT) 20 U/L (5-34); Albumin 3.7 g/dL (3.4-4.8); Alkaline Phosphatase 82 U/L (40-110); Anion Gap 11 mmol/L (10-20); BUN (Urea Nitrogen) 14 mg/dL (8.4-25.7); Bilirubin, Total 0.7 mg/dL (0.2-1.2); Calc. Creatinine Clearance 88 mL/min (70-130); Calcium 8.8 mg/dL (7.8-10.44); Carbon Dioxide 26 mmol/L (23-31); Chloride 106 mmol/L (98-107); Estimated GFR-MDRD 57; Globulin 3.2 g/dL (2.4-3.5); Glucose 110 mg/dL (83-110); Potassium 4.4 mmol/L (3.5-5.1); Protein, Total 6.9 g/dL (5.8-8.1); Sodium 139 mmol/L (136-145)
[2019-06-15] MEDS ORDERED: Levothyroxine 175 MCG TAB PO SCH (06:00)
[2019-06-15] MEDS ORDERED: Amitriptyline HCl 100 MG TAB PO SCH ×2 (09:00→21:00)
[2019-06-15] MEDS ORDERED: Apixaban 5 MG TAB PO SCH (09:00)
[2019-06-15] MEDS ORDERED: Aspirin Chewable 81 MG TAB PO SCH ×2 (09:00→21:00)
[2019-06-15] MEDS ORDERED: Amlodipine 5 MG TAB PO SCH ×2 (09:00→21:00)
[2019-06-15] MEDS ORDERED: Atorvastatin Calcium 40 MG TAB PO SCH ×2 (09:00→21:00)
[2019-06-15] MEDS ORDERED: Losartan 25 MG TAB PO SCH (09:00)
[2019-06-15] MEDS: Famotidine 20 MG TAB PO SCH (09:17)
[2019-06-15 11:38] VITALS: BP 164/82; TEMP 97.6
--- NOTE | 2019-06-15 12:54 | DIS ---
DATE OF ADMISSION: 06/14/2019 DATE OF DISCHARGE: 06/15/2019 DISPOSITION: Discharged home. PRIMARY CARE PHYSICIAN: No PCP. FINAL DIAGNOSES: 1. Cellulitis, on oral antibiotics. 2. Hypertension. 3. Dyslipidemia. 4. Coronary artery disease. 5. Hypothyroidism. DISCHARGE MEDICATIONS: 1. Cephalexin 500 mg p.o. q.i.d. for 2 weeks. 2. Levothyroxine 175 mcg a day. 3. Lipitor 40 mg a day. 4. Aspirin 81 mg a day. 5. Eliquis 5 mg a day. 6. Amlodipine 5 mg a day. 7. Elavil 50 mg a day. 8. Losartan 100 mg a day. ALLERGIES: TO BACITRACIN, NEOMYCIN, POLYMYXIN B. DIET: Heart healthy. CODE STATUS: Full. PENDING AT TIME OF DISCHARGE: Wound culture growing a gram-negative vaughn, which I suspect is not part of his pathology. HOSPITAL COURSE: The patient, who was recently admitted to the hospital, had an acute invasive cellulitis, eventually discharged on oral cephalexin, to be followed up with Dr. Ortiz. He presented with complaints of cellulitis of his legs. He has had no fever. His white count was unremarkable at 6.1 with no left shift, followed up by 6.3 with no left shift. His leg lesion is warm, dry with no drainage. I am not sure where this wound culture came from. There does not appear to be an open lesion on his leg at this time. I have discussed ongoing therapy with him. We have decided to continue his cephalexin, which he had finished. He was on suppressive therapy with low-dose Pen-VK for 2 more weeks and have him follow up with Dr. Ortiz. He already has an appointment. CONSULTATIONS WHILE IN HOSPITAL: None. PROCEDURES: None. FOLLOWUP: As mentioned before, follow up with Dr. Ortiz. Job ID: [id number]
== END 2019-06-15 15:34 | disposition home or self-care (01) ==
LOC: ERS 11:57 → 2SW 17:40
PROVIDERS: ADMIT Internal Medicine; ATTEND Internal Medicine
DX: L03.032 Cellulitis of left toe (principal); I10 Essential (primary) hypertension; I25.10 Atherosclerotic heart disease of native coronary artery without angina pectoris; E03.9 Hypothyroidism, unspecified; E78.5 Hyperlipidemia, unspecified; F41.1 Generalized anxiety disorder; R73.03 Prediabetes; Z79.01 Long term (current) use of anticoagulants; Z79.82 Long term (current) use of aspirin; Z79.899 Other long term (current) drug therapy; Z87.891 Personal history of nicotine dependence; Z88.1 Allergy status to other antibiotic agents
CPT/HCPCS: 36415; 80053; 85025; 85652; 86140; 87070; 87077; 87186; 87205; 96365; 96366; 96367; 96376; G0378; J2543; J3490